=== PATIENT | female | born 1970 | race Caucasian/White ===

== ENCOUNTER 2019-08-25 19:14 | Emergency (ER) | payer MEDICAID | END 2019-08-25 20:41 | disposition left against medical advice (07) | LOC: ER 19:14 | DX: R10.9 Unspecified abdominal pain (principal); Z53.21 Procedure and treatment not carried out due to patient leaving prior to being seen by health care provider ==

== ENCOUNTER 2021-03-14 00:37 | Emergency (ER) | payer MEDICAID ==
[~2021-03-14] VITALS: Ht 147.3 cm; Wt 62.0 kg
[2021-03-14 01:08] VITALS: BP 151/66
[2021-03-14] MEDS ORDERED: ASPIRIN 81MG TABLET PO ONE (01:30)
[2021-03-14 02:10] LABS: BASOPHILS % 1.1 % (0.0-2.0); EOSINOPHILS % 1.1 % (0.0-5.0); HEMATOCRIT. 40.5 % (36.0-48.0); HEMOGLOBIN. 13.7 g/dL (12.0-16.0); LYMPHOCYTES % 32.6 % (20.0-50.0); MEAN CORPUSCULAR HEMOGLOBIN 28.6 pg (28.0-32.0); MEAN CORPUSCULAR VOLUME 84.3 fL (81.0-99.0); MONOCYTES % 9.9 % (2.0-8.0); NEUTROPHILS % 55.3 % (40.0-76.0); PLATELET 283 x1000/uL (130-400); RED BLOOD CELL COUNT 4.81 mill/uL (4.2-5.4); RED CELL DISTRIBUTION WIDTH 13.2 % (11.6-14.6)
[2021-03-14 02:15] LABS: CHLORIDE 109 mEq/L (98-107)
[2021-03-14 02:18] LABS: ETHANOL BLOOD < 10 mg/dL
[2021-03-14 03:19] LABS: *AMPHETAMINES SCREEN URINE NEGATIVE (NEGATIVE); *BARBITURATES SCREEN URINE NEGATIVE (NEGATIVE); *BENZODIAZEPINES SCREEN URINE NEGATIVE (NEGATIVE); *COCAINE SCREEN URINE NEGATIVE (NEGATIVE); METHADONE URINE SCREEN NEGATIVE (NEGATIVE); OPIATES URINE SCREEN NEGATIVE (NEGATIVE); PHENCYCLIDINE URINE SCREEN NEGATIVE (NEGATIVE)
[2021-03-14 03:20] LABS: CANNABINOID URINE SCREEN NEGATIVE (NEGATIVE)
== END 2021-03-14 04:09 | disposition home or self-care (01) ==
LOC: ER 00:37
DX: F41.9 Anxiety disorder, unspecified (principal); R20.0 Anesthesia of skin; I49.9 Cardiac arrhythmia, unspecified
CPT/HCPCS: 36415; 71045; 80053; 80305; 80320; 81025; 83880; 84443; 84484; 85025; 85379; 93005; 99285; Z7610; G0480

== ENCOUNTER 2022-10-18 10:50 | Emergency (ER) | payer MEDICAID, OTHER ==
[~2022-10-18] VITALS: Ht 147.3 cm; Wt 62.3 kg
[2022-10-18 10:57] VITALS: BP 159/80
[2022-10-18] MEDS ORDERED: IBUPROFEN 600MG TABLET PO STA (12:53)
[2022-10-18] MEDS ORDERED: IMIT25 MT (13:42)
== END 2022-10-18 14:05 | disposition home or self-care (01) ==
LOC: ER 10:50
DX: R51.9 Headache, unspecified (principal); F41.9 Anxiety disorder, unspecified
CPT/HCPCS: 99284